=== PATIENT | female | born 1955 | race Caucasian/White ===

== ENCOUNTER 2024-12-30 06:00 | Day surgery (SDC) | payer MEDICARE, OTHER ==
[~2024-12-30 06:00] MED LIST: Sodium Chloride 0.9% 10 ML Syringe FLUSH PRN; Sodium Chloride 0.9% 10 ML Syringe FLUSH SCH
[2024-12-30] MEDS ORDERED: propofoL 500 MG/50 ML 50 ML ONE (06:15)
[2024-12-30] MEDS ORDERED: Ondansetron 4 MG/2 ML SDV ONE (06:15)
[2024-12-30] MEDS ORDERED: Ropivacaine 0.5% 5 MG/ML 30 ML SDV ONE (06:15)
[2024-12-30] MEDS ORDERED: dexmedeTOMIDine HCl 200 MCG/2 ML SDV ONE (06:15)
[2024-12-30] MEDS ORDERED: Lactated Ringers 1,000 ML ONE (06:15)
[2024-12-30] MEDS ORDERED: ceFAZolin 2 GM Vial ONE (06:15)
[2024-12-30] MEDS ORDERED: Midazolam 1 MG/ML 2 ML SDV ONE (06:16)
[2024-12-30] MEDS: Lactated Ringers 1,000 ML IV SCH (06:20)
[2024-12-30] MEDS: Pregabalin 25 MG Cap PO ONE (06:37)
[2024-12-30] MEDS: Acetaminophen 325 MG Tab PO ONE (06:37)
[2024-12-30] MEDS: oxyCODONE ER 10 MG TAB.ER PO ONE (06:37)
[2024-12-30] MEDS ORDERED: fentaNYL 100 MCG/2 ML SDV IVPUSH PRN (06:41)
[2024-12-30] MEDS ORDERED: Ondansetron 4 MG/2 ML SDV IVPUSH PRN (06:41)
[2024-12-30] MEDS ORDERED: HYDROmorphone 0.5 MG/0.5 ML Syringe IVPUSH PRN (06:41)
[2024-12-30 06:48] LABS: INR 0.97; PROTHROMBIN TIME 10.3 SECONDS (9.7-12.0)
[2024-12-30 06:49] LABS: PTT,PARTIAL THROMBOPLSTIN TIME 27.4 SECONDS (21.7-31.4)
[2024-12-30] MEDS ORDERED: Phenylephrine 1% 10 MG/ML SDV ONE (07:29)
[2024-12-30] MEDS ORDERED: ePHEDrine 50 MG/ML SDV ONE (07:45)
[2024-12-30] MEDS ORDERED: Lidocaine 1% 2 ML ONE (07:46)
[2024-12-30] MEDS ORDERED: Lidocaine 1% 4 ML ONE (07:46)
[2024-12-30] MEDS: Morphine 8 MG, EPINEPHrine 0.3 MG, Cefuroxime 750 MG, Ketorolac 30 MG, Sodium Chloride ... PRN (08:03)
[2024-12-30] MEDS: VANCOmycin 1 GM SDV ONE (08:08)
[2024-12-30] MEDS: Tranexamic Acid 1,000 MG/10 ML Vial ONE (08:08)
[2024-12-30] MEDS: oxyCODONE 5 MG Tab PO PRN (09:55)
== END 2024-12-30 12:40 | disposition home or self-care (01) ==
LOC: JD.SDS 06:00
PROVIDERS: ATTEND Orthopaedic Surgery
DX: M17.11 Unilateral primary osteoarthritis, right knee (principal); E03.9 Hypothyroidism, unspecified; Z79.2 Long term (current) use of antibiotics; Z79.01 Long term (current) use of anticoagulants; Z79.890 Hormone replacement therapy; Z79.899 Other long term (current) drug therapy
CPT/HCPCS: 0055T; 27447; 36415; 64447; 73560; 85610; 85730; 97116; 97161; 97530; A9270; C1713; C1776; J0171; J0690; J0697; J1885; J2003; J2250; J2272; J2371; J2405; J2704; J2795; J3370; J7120; J3490